=== PATIENT | male | born 1965 | race Caucasian/White ===

== ENCOUNTER 2021-11-16 17:50 | Outpatient (REF) | payer BC, SELFPAY | END 2021-11-16 17:51 | disposition home or self-care (01) | LOC: LBN 17:50 | PROVIDERS: Visit Provider Podiatrist | DX: E11.621 Type 2 diabetes mellitus with foot ulcer (principal); L97.521 Non-pressure chronic ulcer of other part of left foot limited to breakdown of skin | CPT/HCPCS: 87070; 87205 ==

== ENCOUNTER 2022-01-06 09:00 | Day surgery (SDC) | payer BC, SELFPAY ==
[2022-01-06 10:33] VITALS: BP 144/69; PULSE 50; RESP 18; TEMP 36.5; O2SAT 96
[2022-01-06 11:45] VITALS: BP 161/80; PULSE 50; RESP 18; TEMP 36.1; O2SAT 97
--- NOTE | 2022-01-06 11:46 | ROE_ITS ---
Date of service: 01/06/22 Time of Service: 11:46 Operative Note Operative Note DATE OF PROCEDURE: 01/06/22 PRE-OP DIAGNOSIS: Diabetic ulcer left foot PROCEDURE: Full-thickness debridement diabetic ulcer left foot with epi fix application SURGEON: John Arce Refer to Anesthesia Record ESTIMATED BLOOD LOSS: 1 PATHOLOGY: none sent TOURNIQUET TIME: 0 COMPLICATIONS: None Patient was transported to: same day Implants: 18 mm epi fix graft Indications: 56-year-old poorly controlled diabetic with nonhealing wound over the plantar lateral aspect left fifth metatarsal base. He is being brought to the OR for debridement of the wound and epi fix application. He understands the potential complications consisting of scarring, infection, failure to thrive. All questions have been answered. Informed consent obtained. Procedure Description: Rikki was brought to the operative suite placed in the supine position with the left foot prepped and draped in the usual sterile podiatric fashion. Timeout was performed for safe surgery in standard fashion. Utilizing a dermal curette the base of the wound was curettaged until good bleeding was identified. Grayish debris and slime layer being removed the wound was full-thickness. The wound measured 2 cm in length by 8 mm in width. A #10 scalpel was then used to reduce the hypertrophic margin around the wound and remove any additional devitalized tissue. Nice active bleeding was appreciated at this time. Compression was applied to control bleeding. The epi fix graft was then trimmed to size and placed into the wound. The epi fix was secured with Vaseline impregnated gauze, gauze fluff compression dressings. Surgical shoe was rey sanchez Rikki was informed to leave the dressings intact, to take it easy over the weekend and stay off the foot is much as humanly possible. All questions were answered in detail.
--- NOTE | 2022-01-06 11:51 | W.PM.DS.N ---
Date of service: 01/06/22 Time of Service: 11:51 DS: Diagnosis Discharge Diagnosis (1) Diabetic ulcer of left foot: Start date: 01/06/22 Status: Acute Asessment and Plan: Full-thickness debridement diabetic ulcer left foot with epi fix application Discharge Plan Disposition Patient Disposition: HOME Condition: Good Discharge Details Attending Provider: John Arce Primary Care Provider: John Downey Home Meds and New Rx's Prescriptions: No Action triamcinolone acetonide 0.1 % Cream 1 applic TOPICAL DAILY PRN gabapentin 300 mg Capsule 300 mg PO BID mupirocin 2 % Ointment 1 applic TOPICAL DIRECTED Rx Instructions: Every other day atorvastatin 20 mg Tablet 20 mg PO QHS metoprolol succinate 200 mg Tablet Extended Release 24 Hr 200 mg PO HS isosorbide mononitrate 30 mg Tablet Extended Release 24 Hr 30 mg PO QAM chlorthalidone 25 mg Tablet 25 mg PO DAILY omeprazole 20 mg Capsule,Delayed Release(Dr/Ec) 20 mg PO DAILY losartan 100 mg Tablet 100 mg PO DAILY insulin lispro [Humalog KwikPen Insulin] 100 unit/mL Insulin Pen 1 sliding scale dose SUBCUT TID Label Comments: average 30 units TID eplerenone 50 mg Tablet 50 mg PO DAILY diltiazem HCl 300 mg Tablet Extended Release 24 Hr 300 mg PO QAM sildenafil (pulm.hypertension) 20 mg Tablet 20 mg PO PRN PRN insulin glargine [Lantus Solostar U-100 Insulin] 100 unit/mL (3 mL) Insulin Pen 75 unit SUBCUT BID aspirin 81 mg Capsule 81 mg PO DAILY Discharge Instructions Activity:: Elevate Remove Dressings/Wound Care:: Do Not Remove Shower/Bathe:: Cover Diet:: Carb Counting Discharge Orders Discharge Orders: Discharge Order (Routine); Ordered 01/06/22 Ordered By: John Arce DS: Summary Time Spent with Patient providing and/or coordinating discharge services: Less than 30 minutes Status at Discharge Functional status at discharge: independent ambulation Overall status at discharge: patient is back to baseline Mental Status: mental status grossly normal Speech and Movement: speech and movement normal Mood: congruent mood Affect: normal affect Exam Psych Mental Status: mental status grossly normal Speech and Movement: speech and movement normal Mood: congruent mood Affect: normal affect DS: Data Vitals/I&O Vitals and I&O: Vital Signs Temperature 36.5 C 01/06/22 10:33 Pulse 50 L 01/06/22 10:33 Pulse Rhythm Regular 01/06/22 10:33 Respiratory Rate 18 01/06/22 10:33 Respiratory Depth Normal 01/06/22 10:33 Blood Pressure 144/69 H 01/06/22 10:33 Pulse Oximetry 96 01/06/22 10:33 Oxygen Delivery Method Room Air 01/06/22 10:33 Oxygen Flow Rate 0 01/06/22 10:33 Pain Level 0 01/06/22 10:33 Intake & Output 01/05/22 01/06/22 01/06/22 18:59 06:59 18:59 Weight 150.1 kg PFSH All Active Problems (Updated 01/06/22 @ 11:52 by John Arce DPM) Diabetic ulcer of left foot (Acute) Medical History (Updated 01/06/22 @ 11:52 by John Arce DPM) Diabetes mellitus, type II Disorder of nervous system Dream enactment behavior Dyslipidemia Hypertension Insomnia Microscopic hematuria Nicotine dependence Obesity Obstructive sleep apnea Severe nonproliferative diabetic retinopathy Shoulder joint pain Snoring Surgical History (Updated 01/05/22 @ 15:33 by Re Judd) H/O arthroscopy of shoulder capsulorraphy History of bilateral cataract extraction History of hand surgery Hx of colonoscopy Social History Smoking/Tobacco Use Status: Current every day Tobacco Type: smokeless tobacco Tobacco: How many years used: 40 Smoking risk assessment performed?: Yes Alcohol Intake: never Substance use type: does not use Additional Social history: unable to assess privately
== END 2022-01-06 12:03 | disposition home or self-care (01) ==
PROVIDERS: PCP Internal Medicine; Visit Provider Podiatrist
PROC: (CPT 15271; principal; 2022-01-06 12:30)
DX: E11.621 Type 2 diabetes mellitus with foot ulcer (principal); L97.529 Non-pressure chronic ulcer of other part of left foot with unspecified severity
CPT/HCPCS: 15271; 15002; Q4186

== ENCOUNTER 2022-01-11 10:25 | Day surgery (SDC) | payer BC, SELFPAY ==
[2022-01-11 10:30] VITALS: BP 143/77; PULSE 45; RESP 16; TEMP 36.7; O2SAT 96
[2022-01-11 12:47] VITALS: BP 137/64; PULSE 40; RESP 16; TEMP 36; O2SAT 96
--- NOTE | 2022-01-11 12:54 | W.PM.OP ---
Date of service: 01/11/22 Time of Service: 12:54 Operative Note Operative Note DATE OF PROCEDURE: 01/11/22 PRE-OP DIAGNOSIS: diabetic ulcer left foot POST-OP DIAGNOSIS: same PROCEDURE: Debridement wound base of the left fifth metatarsal application epi fix SURGEON: John Arce Refer to Anesthesia Record ESTIMATED BLOOD LOSS: 1 PATHOLOGY: none sent TOURNIQUET TIME: 0 Implants: Epi fix 18 mm graft Indications: 56-year-old poorly controlled diabetic male with ulceration base of the left fifth metatarsal which is failed to significantly improve with nonoperative treatment. He is being brought to the OR for surgical debridement of the wound and a second epi fix application (the first 1 being performed 5 days ago). Procedure Description: Rikki was brought to the operative suite placed in the supine position with the left foot prepped and draped in the usual podiatric fashion utilizing normal saline scrub. With a #10 scalpel and pickup the wound was sharply debrided full-thickness resecting the hypertrophic margin, slough and slime. The wound measures 5 mm x 6 mm with a second wound directly inferior to this which is now 4 mm x 3 mm and is partial-thickness. There is no active sign of bacterial infection. No undermining no sinus tracking. Once all devitalized tissue was removed and I was pleased with the wound bed, 18 mm epi fix graft was obtained I trimmed the graft so as to fit into both wounds with orientation being checked twice. Vaseline impregnated gauze fluff gauze compression dressings were then applied. Rikki left the OR with vital signs stable vascular status intact. He will leave the dressing untouched and I will follow him up in the office in 1 week. Dictated with Layla naturally speaking document not reviewed for donor relations manager accuracy
--- NOTE | 2022-01-11 12:58 | W.PM.DS.N ---
Date of service: 01/11/22 Time of Service: 12:59 Discharge Plan Disposition Patient Disposition: HOME Condition: Good Discharge Details Attending Provider: John Arce Primary Care Provider: John Downey Home Meds and New Rx's Prescriptions: No Action triamcinolone acetonide 0.1 % Cream 1 applic TOPICAL DAILY PRN gabapentin 300 mg Capsule 300 mg PO BID mupirocin 2 % Ointment 1 applic TOPICAL DIRECTED Rx Instructions: Every other day atorvastatin 20 mg Tablet 20 mg PO QHS metoprolol succinate 200 mg Tablet Extended Release 24 Hr 200 mg PO HS isosorbide mononitrate 30 mg Tablet Extended Release 24 Hr 30 mg PO QAM chlorthalidone 25 mg Tablet 25 mg PO DAILY omeprazole 20 mg Capsule,Delayed Release(Dr/Ec) 20 mg PO DAILY losartan 100 mg Tablet 100 mg PO DAILY insulin lispro [Humalog KwikPen Insulin] 100 unit/mL Insulin Pen 1 sliding scale dose SUBCUT TID Label Comments: average 30 units TID eplerenone 50 mg Tablet 50 mg PO DAILY diltiazem HCl 300 mg Tablet Extended Release 24 Hr 300 mg PO QAM sildenafil (pulm.hypertension) 20 mg Tablet 20 mg PO PRN PRN insulin glargine [Lantus Solostar U-100 Insulin] 100 unit/mL (3 mL) Insulin Pen 75 unit SUBCUT BID aspirin 81 mg Capsule 81 mg PO DAILY Discharge Instructions Activity:: Activity as Tolerated Remove Dressings/Wound Care:: Do Not Remove Shower/Bathe:: Cover Diet:: Carb Counting Discharge Orders Discharge Orders: Discharge Order (Routine); Ordered 01/11/22 Ordered By: John Arce DS: Summary Time Spent with Patient providing and/or coordinating discharge services: Less than 30 minutes Status at Discharge Functional status at discharge: independent ambulation Overall status at discharge: patient is back to baseline Mental Status: mental status grossly normal Speech and Movement: speech and movement normal Mood: congruent mood Affect: normal affect Exam Psych Mental Status: mental status grossly normal Speech and Movement: speech and movement normal Mood: congruent mood Affect: normal affect DS: Data Vitals/I&O Vitals and I&O: Vital Signs Temperature 36.7 C 01/11/22 10:30 Pulse 45 L 01/11/22 10:30 Pulse Rhythm Regular 01/11/22 10:30 Respiratory Rate 16 01/11/22 10:30 Respiratory Depth Normal 01/11/22 10:30 Blood Pressure 143/77 H 01/11/22 10:30 Pulse Oximetry 96 01/11/22 10:30 Oxygen Delivery Method Room Air 01/11/22 10:30 Oxygen Flow Rate 0 01/11/22 10:30 Intake & Output 01/10/22 01/11/22 01/11/22 18:59 06:59 18:59 Weight 150.3 kg PFSH All Active Problems Diabetic ulcer of left foot (Acute) Medical History Diabetes mellitus, type II Disorder of nervous system Dream enactment behavior Dyslipidemia Hypertension Insomnia Microscopic hematuria Nicotine dependence Obesity Obstructive sleep apnea Severe nonproliferative diabetic retinopathy Shoulder joint pain Snoring Surgical History H/O arthroscopy of shoulder capsulorraphy History of bilateral cataract extraction History of hand surgery Hx of colonoscopy Social History Smoking/Tobacco Use Status: Current every day Tobacco Type: smokeless tobacco Tobacco: How many years used: 40 Smoking risk assessment performed?: Yes Alcohol Intake: never Substance use type: does not use Do you feel safe at home: Yes Do you feel safe in your relationship?: Yes Additional Social history: unable to assess privately
== END 2022-01-11 13:15 | disposition home or self-care (01) ==
PROVIDERS: PCP Internal Medicine; Visit Provider Podiatrist
PROC: (CPT 15275; principal; 2022-01-11 12:15)
DX: E11.621 Type 2 diabetes mellitus with foot ulcer (principal); L97.429 Non-pressure chronic ulcer of left heel and midfoot with unspecified severity; E11.65 Type 2 diabetes mellitus with hyperglycemia
CPT/HCPCS: 15275; 15004; Q4186

== ENCOUNTER 2022-01-20 07:07 | Day surgery (SDC) | payer BC, SELFPAY ==
[2022-01-20 07:44] VITALS: BP 162/80; PULSE 49; RESP 18; TEMP 37.1; O2SAT 97
--- NOTE | 2022-01-20 09:01 | W.PM.DS.N ---
Date of service: 01/20/22 Time of Service: 09:01 DS: Diagnosis Discharge Diagnosis (1) Diabetic ulcer of left foot: Start date: 01/20/22 Start time: 09:02 Status: Acute Asessment and Plan: Debridement wound left foot with epi fix application Discharge Plan Disposition Patient Disposition: HOME Condition: Good Discharge Details Attending Provider: John Arce Primary Care Provider: John Downey Home Meds and New Rx's Prescriptions: No Action triamcinolone acetonide 0.1 % Cream 1 applic TOPICAL DAILY PRN gabapentin 300 mg Capsule 300 mg PO BID mupirocin 2 % Ointment 1 applic TOPICAL DIRECTED Rx Instructions: Every other day atorvastatin 20 mg Tablet 20 mg PO QHS metoprolol succinate 200 mg Tablet Extended Release 24 Hr 200 mg PO HS isosorbide mononitrate 30 mg Tablet Extended Release 24 Hr 30 mg PO QAM chlorthalidone 25 mg Tablet 25 mg PO DAILY omeprazole 20 mg Capsule,Delayed Release(Dr/Ec) 20 mg PO HS losartan 100 mg Tablet 100 mg PO DAILY insulin lispro [Humalog KwikPen Insulin] 100 unit/mL Insulin Pen 1 sliding scale dose SUBCUT TID Label Comments: average 30 units TID eplerenone 50 mg Tablet 50 mg PO DAILY diltiazem HCl 300 mg Tablet Extended Release 24 Hr 300 mg PO QAM sildenafil (pulm.hypertension) 20 mg Tablet 20 mg PO PRN PRN insulin glargine [Lantus Solostar U-100 Insulin] 100 unit/mL (3 mL) Insulin Pen 75 unit SUBCUT BID aspirin 81 mg Capsule 81 mg PO DAILY Discharge Instructions Activity:: Elevate Remove Dressings/Wound Care:: Do Not Remove Shower/Bathe:: Cover Diet:: Carb Counting Discharge Orders Discharge Orders: Discharge Order (Routine); Ordered 01/20/22 Ordered By: John Arce DS: Summary Time Spent with Patient providing and/or coordinating discharge services: Less than 30 minutes Status at Discharge Functional status at discharge: independent ambulation Overall status at discharge: patient is back to baseline Mental Status: mental status grossly normal Speech and Movement: speech and movement normal Mood: congruent mood Affect: normal affect Exam Psych Mental Status: mental status grossly normal Speech and Movement: speech and movement normal Mood: congruent mood Affect: normal affect DS: Data Vitals/I&O Vitals and I&O: Vital Signs Temperature 37.1 C 07/29/22 07:44 Pulse 49 L 01/20/22 07:44 Pulse Rhythm Regular 01/20/22 07:44 Respiratory Rate 18 01/20/22 07:44 Respiratory Depth Normal 01/20/22 07:44 Blood Pressure 162/80 H 01/20/22 07:44 Pulse Oximetry 97 01/20/22 07:44 Oxygen Delivery Method Room Air 01/20/22 07:44 Oxygen Flow Rate 0 01/20/22 07:44 Intake & Output 01/19/22 01/20/22 01/20/22 18:59 06:59 18:59 Weight 150.139 kg PFSH All Active Problems Diabetic ulcer of left foot (Acute) Medical History Diabetes mellitus, type II Disorder of nervous system Dream enactment behavior Dyslipidemia Hypertension Insomnia Microscopic hematuria Nicotine dependence Obesity Obstructive sleep apnea Severe nonproliferative diabetic retinopathy Shoulder joint pain Snoring Surgical History H/O arthroscopy of shoulder capsulorraphy History of bilateral cataract extraction History of hand surgery Hx of colonoscopy Social History Smoking/Tobacco Use Status: Current every day Tobacco Type: smokeless tobacco Tobacco: How many years used: 40 Smoking risk assessment performed?: Yes Alcohol Intake: never Substance use type: does not use Do you feel safe at home: Yes Do you feel safe in your relationship?: Yes Additional Social history: unable to assess privately
[2022-01-20 09:03] VITALS: BP 153/74; PULSE 45; RESP 18; TEMP 36.7; O2SAT 97
--- NOTE | 2022-01-20 09:03 | W.PM.OP ---
Date of service: 01/20/22 Time of Service: 09:03 Operative Note Operative Note DATE OF PROCEDURE: 01/20/22 PRE-OP DIAGNOSIS: Diabetic ulcer left foot POST-OP DIAGNOSIS: same PROCEDURE: Debridement partial thickness wound left foot, wound bed preparation for epi fix application SURGEON: John Arce ANESTHESIA TYPE: Other Refer to Anesthesia Record ESTIMATED BLOOD LOSS: 1 PATHOLOGY: none sent TOURNIQUET TIME: 0 COMPLICATIONS: None Patient was transported to: same day Implants: Epi fix Indications: 56-year-old diabetic obese male with nonhealing wound lateral aspect of his left foot. He is being brought to the procedure room for debridement and his third application of epi fix. The wound has showed significant improvement since epi fix applications have been instituted. Findings: The wound over the base of the left fifth metatarsal measures 7 mm x 3 mm and is up to 1 mm deep. There is no active sign of infection. There is a little bit of undermining but no tunneling or sinus tracking. Procedure Description: Rikki was brought to the operative suite placed in supine position with the left foot was prepped with normal saline and dried. With a #10 scalpel and pickup the wound was sharply debrided removing the hypertrophic margin, slough and debris. Bleeding was appreciated around the wound margins scant bleeding at the base. A wider debridement was then performed removing keratosis from that region of the foot without difficulty. The foot was once again washed down with normal saline and gently dried. An 18 mm epi fix graft was procured, cut to size and inserted into the base of the wound. It was covered with Vaseline impregnated gauze, gauze fluff and Curlex rolls x2 Rikki tolerated the procedure well and will be followed in the office.
== END 2022-01-20 09:25 | disposition home or self-care (01) ==
PROVIDERS: PCP Internal Medicine; Visit Provider Podiatrist
PROC: (CPT 15275; principal; 2022-01-20 08:30)
DX: E11.621 Type 2 diabetes mellitus with foot ulcer (principal); L97.529 Non-pressure chronic ulcer of other part of left foot with unspecified severity
CPT/HCPCS: 15275; 15004; Q4186